=== PATIENT | male | born 1965 | race Caucasian/White ===

== ENCOUNTER → 2018-09-27 12:20 | Outpatient (CLI) | payer OTHER, SELFPAY ==
--- NOTE | 2018-09-27 | DI.RAD.S_ITS ---
PROCEDURE: XR LUMBAR SPINE 2-3V INDICATIONS: Lspine pain TECHNIQUE: 2 views of the lumbar spine were acquired. COMPARISON: [facility], CR, XR LUMBAR SPINE 2 OR 3 VIEWS, 08/02/2017, 16:36. FINDINGS: Bones: 5 [id number] vertebrae are present. There is normal bony alignment. No vertebral body compression fractures. No suspicious bony lesions. Soft tissues: Overlying bowel gas pattern is normal. No suspicious soft tissue calcifications. IMPRESSION: No trauma found, no subluxation seen. No significant degenerative disc disease is identified. Dictated by: Konstantin Castañeda M.D. on 09/27/2018 at 12:44 Approved by: Konstantin Castañeda M.D. on 09/27/2018 at 12:45
== END ==
DX: M54.5 Low back pain (principal)
CPT/HCPCS: 72100